=== PATIENT | female | born 1970 | race African-American/Black ===

== ENCOUNTER 2020-11-13 19:57 | Emergency (ER) | payer MEDICAID ==
[~2020-11-13] VITALS: Ht 165.1 cm; Wt 78.0 kg
[2020-11-13 23:25] LABS: BASOPHILS % 0.3 % (0.0-2.0); EOSINOPHILS % 0.1 % (0.0-5.0); HEMATOCRIT. 42.5 % (36.0-48.0); HEMOGLOBIN. 14.4 g/dL (12.0-16.0); LYMPHOCYTES % 18.7 % (20.0-50.0); MEAN CORPUSCULAR HEMOGLOBIN 27.4 pg (28.0-32.0); MEAN CORPUSCULAR VOLUME 80.7 fL (81.0-99.0); MEAN PLATELET VOLUME 8.8 fl (7.4-10.4); MONOCYTES % 5.9 % (2.0-8.0); PLATELET 234 x1000/uL (130-400); RED BLOOD CELL COUNT 5.26 mill/uL (4.2-5.4); RED CELL DISTRIBUTION WIDTH 15.6 % (11.6-14.6)
[2020-11-13 23:32] LABS: CHLORIDE 109 mEq/L (98-107)
[2020-11-13] MEDS ORDERED: LEVETIRACETAM 1,000 MG in SODIUM CHLORIDE 0.9% 100 ML IV STA (23:45)
[2020-11-13] MEDS ORDERED: METOCLOPRAMIDE HCL 10MG/2ML VIAL IV ONE (23:45)
[2020-11-13] MEDS ORDERED: ACETAMINOPHEN 325MG TABLET PO ONE (23:45)
[2020-11-13] MEDS ORDERED: IBUPROFEN 400MG TABLET PO ONE (23:45)
[2020-11-13] MEDS ORDERED: KEPP500 MT (23:48)
[2020-11-14] MEDS ORDERED: LEVETIRACETAM 1000MG PREMIX 100 ML IV SCH (00:15)
[2020-11-14 08:15] VITALS: BP 130/77
== END 2020-11-14 08:16 | disposition home or self-care (01) ==
LOC: ER 19:57
DX: G40.909 Epilepsy, unspecified, not intractable, without status epilepticus (principal); R51.9 Headache, unspecified; F19.10 Other psychoactive substance abuse, uncomplicated; I62.9 Nontraumatic intracranial hemorrhage, unspecified; Z86.73 Personal history of transient ischemic attack (TIA), and cerebral infarction without residual deficits; Z98.890 Other specified postprocedural states
CPT/HCPCS: 36415; 70450; 80048; 85025; 93005; 96365; 96375; 99285; J1953; J2765; J7050